=== PATIENT | male | born 1980 | race Caucasian/White ===

== ENCOUNTER → 2020-02-08 | Outpatient (CLI) | payer BC ==
--- NOTE | 2020-02-10 14:30 | US ---
EXAMINATION TYPE: US scrotum with doppler. Grayscale and color Doppler Duplex imaging performed of t sharri scrotum. DATE OF EXAM: 02/08/2020 COMPARISON: NONE CLINICAL HISTORY: N50.8 Testicular pain. Patient feels lump posterior right testicle. Pain since . EXAM MEASUREMENTS: TESTICLES: Right Testicle: 3.5 x 1.9 x 2.5 cm Left Testicle: 3.8 x 1.8 x 2.5 cm EPIDIDYMIS HEAD: Right Epididymis: 0.9 x 0.9 cm Left Epididymis: 0.9 x 0.9 cm Doppler performed to assess for testicular vascularity; good bilateral color flow and waveforms are s een. There is no evidence of testicular torsion. Presence of hydroceles: fluid around bilateral testicles Presence of varicoceles: none appreciated Scanned directly over lump as pointed out by patient. This area is directly over epididymis and fluid collection. IMPRESSION: 1. Mild right-sided hydrocele. 2. No suspicious abnormality over the patient's reported lump. This is at the level of the right epid idymis. 3. Testicular echotexture appears normal and symmetrical
== END | disposition home or self-care (01) ==
LOC: RADUSWWP 14:57
PROVIDERS: ATTEND Urology
DX: N43.3 Hydrocele, unspecified (principal); Z88.5 Allergy status to narcotic agent
CPT/HCPCS: 76870; 93975